=== PATIENT | male | born 1955 ===

== ENCOUNTER → 2020-01-07 | Outpatient (CLI) | payer OTHER | END | disposition home or self-care (01) | LOC: RAD 09:30 | PROVIDERS: ATTEND Internal Medicine | DX: M54.5 Low back pain (principal); R07.89 Other chest pain ==

== ENCOUNTER 2021-05-18 14:49 | Outpatient (CLI) | payer OTHER | END 2021-05-18 14:54 | disposition home or self-care (01) | LOC: SONOGRAMA 14:49 | PROVIDERS: ATTEND Internal Medicine | DX: E03.8 Other specified hypothyroidism (principal) ==

== ENCOUNTER 2021-05-18 15:25 | Outpatient (CLI) | payer OTHER | END 2021-05-18 15:36 | disposition home or self-care (01) | LOC: LAB 15:25 | PROVIDERS: ATTEND General Practice | DX: E03.8 Other specified hypothyroidism (principal) ==

== ENCOUNTER 2021-11-11 09:35 | Outpatient (CLI) | payer OTHER | END 2021-11-11 09:36 | disposition home or self-care (01) | LOC: LAB 09:35 | PROVIDERS: ATTEND General Practice | DX: E03.8 Other specified hypothyroidism (principal) ==

== ENCOUNTER 2021-11-11 10:01 | Outpatient (CLI) | payer OTHER | END 2021-11-11 10:03 | disposition home or self-care (01) | LOC: SONOGRAMA 10:01 | PROVIDERS: ATTEND General Practice | DX: E03.8 Other specified hypothyroidism (principal) ==

== ENCOUNTER 2022-03-23 07:33 | Outpatient (CLI) | payer OTHER | END 2022-03-23 07:34 | disposition home or self-care (01) | LOC: LAB 07:33 | PROVIDERS: ATTEND General Practice | DX: R00.2 Palpitations (principal); R42 Dizziness and giddiness; I10 Essential (primary) hypertension; Z12.11 Encounter for screening for malignant neoplasm of colon; E55.9 Vitamin D deficiency, unspecified; N40.1 Benign prostatic hyperplasia with lower urinary tract symptoms; N52.8 Other male erectile dysfunction; R97.20 Elevated prostate specific antigen [PSA] ==

== ENCOUNTER → 2022-11-10 15:20 | Outpatient (CLI) | payer OTHER | END | disposition home or self-care (01) | LOC: LAB 15:20 | PROVIDERS: ATTEND General Practice | DX: E03.8 Other specified hypothyroidism (principal) ==

== ENCOUNTER 2022-11-11 10:04 | Outpatient (CLI) | payer OTHER | END 2022-11-11 10:09 | disposition home or self-care (01) | LOC: SONOGRAMA 10:04 | PROVIDERS: ATTEND General Practice | DX: E04.8 Other specified nontoxic goiter (principal) ==

== ENCOUNTER → 2023-03-17 14:49 | Outpatient (CLI) | payer OTHER ==
[2023-03-17 15:19] LABS: URINE APPEARANCE Clear; URINE BILIRRUBIN Negative (NEGATIVE); URINE BLOOD Negative; URINE COLOR Yellow; URINE GLUCOSE Negative (NEGATIVE); URINE LEUKOCYTE Negative; URINE NITRATE Negative; URINE PROTEIN Negative (NEGATIVE); URINE UROBILINOGEN 0.2 E.U./dl
[2023-03-17 15:21] LABS: URINE BACTERIA 1.2 uL (0.0-1933); URINE EPITHELIAL CELLS 0.3 uL (0.0-38.8); URINE RBC 0.4 uL (0.0-20.8); URINE WBC 1.3 uL (0.0-23.2)
== END | disposition home or self-care (01) ==
LOC: LAB 14:49
PROVIDERS: ATTEND Specialist
DX: N40.1 Benign prostatic hyperplasia with lower urinary tract symptoms (principal); C61 Malignant neoplasm of prostate

== ENCOUNTER 2024-03-12 08:21 | Outpatient (CLI) | payer OTHER ==
[2024-03-12 10:02] LABS: URINE APPEARANCE Clear; URINE BILIRRUBIN Negative (NEGATIVE); URINE BLOOD Negative; URINE COLOR Yellow; URINE GLUCOSE Negative (NEGATIVE); URINE KETONE Negative (NEGATIVE); URINE LEUKOCYTE Negative; URINE NITRATE Negative; URINE PROTEIN Negative (NEGATIVE); URINE UROBILINOGEN 0.2 E.U./dl
[2024-03-12 10:05] LABS: URINE EPITHELIAL CELLS 1.5 uL (0.0-38.8)
[2024-03-12 10:10] LABS: CALCIUM 9.4 mg/dL (8.5-10.1); CREATININE SERUM 1.06 mg/dL (0.70-1.30); GFR 69.47; POTASSIUM 5.12 mEq/L (3.5-5.1)
[2024-03-12 10:15] LABS: URINE RBC 1.4 uL (0.0-20.8); URINE WBC 0.4 uL (0.0-23.2)
[2024-03-12 10:16] LABS: URINE BACTERIA 2.4 uL (0.0-1933)
== END 2024-03-12 08:24 | disposition home or self-care (01) ==
LOC: LAB 08:21
PROVIDERS: ATTEND Specialist
DX: N40.1 Benign prostatic hyperplasia with lower urinary tract symptoms (principal); R97.20 Elevated prostate specific antigen [PSA]